=== PATIENT | female | born 2000 | race Caucasian/White ===

== ENCOUNTER 2024-07-11 07:09 | Emergency (ER) | payer OTHER, SELFPAY ==
--- OUTSIDE RECORDS SUMMARY | 2024-07-11 07:12 | XMS_ITS | Clinical Summary ---
Author Organization [facility] Address [address] [place] [id number] Care Team Providers Care Vice President Investor Relations Name Role Phone Linda Man SLIP BOX CHANGER Primary Care Provider Allergies Active Allergy Reactions Criticality Noted Date Comments Prednisone Itching 05/08/2022 Amoxicillin Vomiting 01/04/2009 Medications MULTIVITAMIN,ST RESS FORMULA (STRESS TAB NF ORAL)Indication s:anxiety Take by mouth. Indications: anxiety Active ETHINYL ESTRADIOL/DROSP IRENONE (ISHMAEL, 28, ORAL) Take by mouth. Active escitalopram oxalate (LEXAPRO) 10 mg tablet Take 10 mg by mouth once daily. Active cholecalciferol (VITAMIN D3) 1,000 unit tablet Take 1,000 Units by mouth. Active ferrous sulfate, 65 mg elemental, 324 mg (65 mg iron) Delayed-Release tablet Take by mouth. Active naproxen (ANAPROX DS) 550 mg tablet Take 1 tablet by mouth. 07/29/2015 Active oxyCODONE (ROXICODONE) 5 mg immediate release tabletIndicatio ns:Cellulitis of right lower extremity,Absce ss Take 1 Tablet (5 mg) by mouth every 6 hours if needed for Pain. 6 Tablet 08/05/2023 Active Immunizations Immunization Administration Dates Next Due AMB Influenza, IIV3 (Age >=3 years)(Flu Clinic Only) 12/23/2007 DTaP 09/14/2003, 0,1998,1998,1998 HIB PRP-OMP (PedvaxHIB) 08/30/1999,11/29,1998,1998 Hepatitis B (Peds) 1998,1998, 999 Human Papilloma Virus Vaccine 10/06/2010 Inactivated Polio Vaccine 09/14/2003,,1998,1998 MMR 09/14/2003,08/30/1999 Tdap 10/06/2010 Varicella Vaccine 10/06/2010,06/06/1999 Family History Medical History Relation Name Comments Asthma Maternal Grandmother Cancer Maternal Grandmother RENAL C ELL Other Maternal Grandmother TB Allergies Mother Asthma Mother EXERCISE INDUCE D Heart Disease Paternal Grandfather CABG Cancer Paternal Grandmother UTERINE Relation Name Status Comments Father Alive Maternal Grandfather Alive Maternal Grandmother Alive Mother Alive Paternal Grandfather Alive Paternal Grandmother Social History Tobacco Use Types Packs/Day Years Used Date Smoking Tobacco: Never Smokeless Tobacco: Never Alcohol Use Standard Drinks/Week Comments No 0 (1 standard drink = 0.6 oz pur e alcohol) Interpersonal Safety Answer Date Record ed Are you being hit, kicked, p ushed or yelled at (see row info)? 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 Gender Identity Not on file Sexual Orientation Not on file Occupation Industry Job Start Date Job End Date student Not on file Not on file Not on file Obstetrics History Last Filed Vital Signs Vital Sign Reading Time Taken Comments Blood Pressure 114/75 08/05/2023 2:16 PM CDT Pulse 82 08/05/2023 2:16 PM CDT Temperature 36.8 C (98.3 F) 08/05/2023 2:16 PM CDT Respiratory Rate 16 08/05/2023 2:16 PM CDT Oxygen Saturation 96% 08/05/2023 2:16 PM CDT Inhaled Oxygen Concentration - - Weight 101.2 kg (223 lb) 08/05/2023 12:45 PM CDT Height 160 cm (5' 3) 08/05/2023 12:45 PM CDT Body Mass Index 39.5 08/05/2023 12:45 PM CDT Plan of Treatment Health Maintenance Due Date Last Done Comments Depression screening for age 12+ 2010 HPV series for age 9-26 (2 - 2-dose series) 04/08/2011 10/06/2010, 10/06/2010 HIV for age 15-65 2013 BMI (ht and wt on same day) for age 18+ 2016 Hepatitis C screening for ag e 18-79 2016 Pap test for age 21-65 05/30/2019 Tetanus booster 10/06/2020 10/06/2010 COVID-19 vaccine series ( season) 2023 01/01/2021, 06/03/2020, 05/08/2020 Influenza Vaccine (Season Ended) 2024 12/23/2007 Tdap Completed 10/06/2010 Pneumococcal series for age 6-49 Aged Out No longer eligible b ased on patient's age to complete this topic Insurance MELODIE WATT [id number] [facility] [place] [id number] [employer] CHOICE Care Teams Vice President Investor Relations Relationship Specialty Start Date End Date Linda Man NP [address] [place] [address] PCP - General Nurse Practitioner 08/05/23
--- OUTSIDE RECORDS SUMMARY | 2024-07-11 07:12 | XMS_ITS | Clinical Summary ---
Author Organization [facility] Address [address] [place] [address] Care Team Providers Care Diffuser Operator Name Role Phone Mikki Washburn MD Primary Care Provi michelle Allergies Active Allergy Reactions Criticality Noted Date Comments Amoxicillin 02/22/2019 Medications cholecalciferol (VITAMIN D-[address]) 25 MCG (1000 UT) TABS Take 1,000 Units by mouth Active escitalopram (LEXAPRO) 10 MG tablet 10/03/2018 Active Ferrous Sulfate 324 (65 Fe) MG TBEC Take 130 mg of iron by mouth Active levothyroxine (SYNTHROID/LEVOT HROID) 50 MCG tablet 01/10/2019 Active magnesium 250 MG tablet Take 250 mg by mouth Active naproxen sodium (ANAPROX) 550 MG tablet Take 1 tablet by mouth 07/29/2015 Active metroNIDAZOLE (FLAGYL) 500 MG tabletIndication s:BV (bacterial vaginosis) Take 1 tablet (500 mg) by mouth 2 times daily 14 tablet 02/22/2019 Active Social History Tobacco Use Types Packs/Day Years Used Date Smoking Tobacco: Never Assessed Comments Unknown Sex and Gender Information Value Date Recorded Sex Assigned at Not on file Legal Sex Female 11:11 AM TEXTILE DYER Gender Identity Not on file Sexual Orientation Not on file Last Filed Vital Signs Vital Sign Reading Time Taken Comments Blood Pressure 128/84 02/22/2019 11:31 AM TEXTILE DYER Pulse 85 02/22/2019 11:31 AM TEXTILE DYER Temperature 37.3 C (99.2 F) 02/22/2019 11:31 AM TEXTILE DYER Respiratory Rate - - Oxygen Saturation 97% 02/22/2019 11:31 AM TEXTILE DYER Inhaled Oxygen Concentration - - Weight 101.6 kg (224 lb) 02/22/2019 11:31 AM TEXTILE DYER Height 160 cm (5' 3) 02/22/2019 11:31 AM TEXTILE DYER Body Mass Index 39.68 02/22/2019 11:31 AM TEXTILE DYER Plan of Treatment [place] [id number] [facility] OUT OF STATE Care Teams Diffuser Operator Relationship Specialty Start Date End Date Mikki Washburn MD PCP - General Family Practice 02/22/19
[2024-07-11 07:14] VITALS: BP 120/86; PULSE 98; RESP 18; TEMP 36.4; O2SAT 98; BMI 37.7
--- NOTE | 2024-07-11 07:40 | ED_ITS ---
HPI - General Adult General Chief complaint: Nausea/Vomiting <Rudolph Mario MD - Last Filed: 07/12/24 08:17> Stated complaint: vomiting and diarriah <Rudolph Mario MD - Last Filed: 07/12/24 08:17> Time Seen by Provider: 07/11/24 07:36 <Rudolph Mario MD - Last Filed: 07/12/24 08:17> History of Present Illness HPI narrative: Patient is a 24-year-old woman who comes in today with a 12 hour history of nausea vomiting diarrhea. She has had no fevers no chills no night sweats. She has had no blood in her stool. She has had no overt abdominal pain. She states that she is not . She is on stable medications with no recent changes. She has had no recent travel or sick contacts. The vomiting is alone limited now she is still very nauseated. She has not had anything to eat since yesterday. <Rudolph Mario MD - Last Filed: 07/12/24 08:17> Related Data Home medications: Home Medications ?Medication ?Instructions ?Recorded ?Confirmed desogestrel 0.15 mg-ethinyl 1 tab PO DAILY 07/11/24 07/11/24 estradiol 0.03 mg tablet (Enskyce) dextroamphetamine-amphetamine 15 1 tab PO BID 07/11/24 07/11/24 mg tablet dicyclomine 10 mg capsule 10 mg PO BID 07/11/24 07/11/24 escitalopram oxalate 20 mg tablet 20 mg PO DAILY 07/11/24 07/11/24 levothyroxine 50 mcg tablet 50 mcg PO QAM 07/11/24 07/11/24 loperamide 2 mg capsule 2 mg PO BID 07/11/24 07/11/24 topiramate 100 mg tablet 100 mg PO DAILY 07/11/24 07/11/24 Previous Rx's ?Medication ?Instructions ?Recorded ondansetron HCl 4 mg tablet 4 mg PO Q8H PRN nausea and 07/11/24 vomiting #10 tabs <Rudolph Mario MD - Last Filed: 07/12/24 08:17> Allergies/adverse reactions: Allergies Allergy/AdvReac Type Severity Reaction Status Date / Time prednisone Allergy Mild itchy Verified 07/11/24 07:20 under skin <Rudolph Mario MD - Last Filed: 07/12/24 08:17> Review of Systems Status of ROS: Reports: 10 or more systems reviewed and unremarkable except as noted in History and below <Rudolph Mario MD - Last Filed: 07/12/24 08:17> [facility] Social History: Social History Smoking Status: Never smoker How often do you have a drink containing alcohol: never How often do you have six or more drinks on one occasion: Never AUDIT-C Alcohol total score: 0 Non-prescribed substance use: denies use <Rudolph Mario MD - Last Filed: 07/12/24 08:17> Exam Narrative: Exam Narrative: EXAM GENERAL: Patient appears comfortable and well. EYES: No scleral icterus. LYMPH: No supraclavicular or cervical lymphadenopathy. SKIN: Visible skin seen during exam normal or with benign process only. EXT: No dependent lower extremity pedal edema. HEART: Regular rate and rhythm with no murmurs, rubs, or gallops. LUNGS: Clear to auscultation bilaterally with no crackles or wheezes. ABD: Soft, non tender, non distended. PSYCH: Good eye contact, speech is not pressured. <Rudolph Mario MD - Last Filed: 07/12/24 08:17> Const: Vital Signs, click to edit/add: Vital Signs - 24 hr 07/11/24 10:05 Pulse Rate [Pulse Oximeter] 97 Respiratory Rate 16 Blood Pressure [Ri ght Upper Arm] 122/82 Pulse Oximetry 97 Oxygen Delivery Me thod Room Air <Rudolph Mario MD - Last Filed: 07/12/24 08:17> Vital Signs, click to edit/add: Vital Signs - 24 hr 07/11/24 10:05 Pulse Rate [Pulse Oximeter] 97 Respiratory Rate 16 Blood Pressure [Ri ght Upper Arm] 122/82 Pulse Oximetry 97 Oxygen Delivery Me thod Room Air <Jim Cuellar MD - Last Filed: 07/11/24 10:04> Course Course ED Course: Patient seen and examined. Normal saline Zofran given. CBC comprehensive metabolic panel lipase pending. <Rudolph Mario MD - Last Filed: 07/12/24 08:17> Reevaluation(s) Reevaluation #1: patient signed out to Dr. Cuellar at shift change -8:00 a.m.. Labs came back with a mild leukocytosis. Dr. Cuellar added on a serum qualitative test and it was negative. Patient was feeling much better after a fluids and Zofran. Recheck shows that her exam is reassuring. Discussed the presenting symptoms, current situation, andplan of care with the patient and her father. She is comfortable managing her symptoms at home. Right now are presumption this is probably a viral GI illness. MDM: The patient's symptoms and exam could be consistent with a viral GI infection. There is no high fever, severe pain, bilious or bloody emesis, blood or mucous in the stool, severe abdominal pain, or other concerning signs for a bacterial infection. No recent travel or high risk exposure for baceraial p athogen. No recent antibiotics or risk factors for C. diff. I don't see any evidence for appendicitis, bowel obstruction, abscess, bowel perforation, or other surgical emergency. Labs show no concerning electrolyte disturbance or renal failure. After meds given the patient is feeling better. At this point, the patient is non-septic appearing and well hydrated.I think the patient can be managed as an outpatient. We have discussed oral rehydration strategies. They understand and can perform the needed interventions at home. I have provided a prescription for antiemetics to facilitate oral hydration ( Zofran oral dissolving tablets). We have discussed the signs and symptoms of worsening dehydration. They understand the need for immediate reevaluation if any of these symptoms occur. They are also directed to obtain close outpatient follow up within 2-3 days. <Jim Cuellar MD - Last Filed: 07/11/24 10:04> Vital Signs Vital signs: Initial Vital Signs Temperature 97.6 F 07/11/24 07:14 Temperature Source Temporal Artery Scan 07/11/24 07:14 Pulse Rate 98 07/11/24 07:14 Respiratory Rate 18 07/11/24 07:14 Blood Pressure 120/86 07/11/24 07:14 Blood Pressure Mean 97 07/11/24 07:14 Blood Pressure Position Sitting 07/11/24 07:14 Pulse Oximetry 98 07/11/24 07:14 Oxygen Delivery Method Room Air 07/11/24 07:14 Vital Signs Temperature 97.6 F 07/11/24 07:14 Pulse Rate 98 07/11/24 07:14 Respiratory Rate 18 07/11/24 07:14 Blood Pressure 120/86 07/11/24 07:14 Pulse Oximetry 98 07/11/24 07:14 Oxygen Delivery Method Room Air 07/11/24 07:14 Temperature 97.6 F 07/11/24 07:14 Pulse Rate 97 07/11/24 10:05 Respiratory Rate 16 07/11/24 10:05 Blood Pressure 122/82 07/11/24 10:05 Pulse Oximetry 97 07/11/24 10:05 Oxygen Delivery Method Room Air 07/11/24 10:05 <Rudolph Mario MD - Last Filed: 07/12/24 08:17> Initial Vital Signs Temperature 97.6 F 07/11/24 07:14 Temperature Source Temporal Artery Scan 07/11/24 07:14 Pulse Rate 98 07/11/24 07:14 Respiratory Rate 18 07/11/24 07:14 Blood Pressure 120/86 07/11/24 07:14 Blood Pressure Mean 97 07/11/24 07:14 Blood Pressure Position Sitting 07/11/24 07:14 Pulse Oximetry 98 07/11/24 07:14 Oxygen Delivery Method Room Air 07/11/24 07:14 Vital Signs Temperature 97.6 F 07/11/24 07:14 Pulse Rate 98 07/11/24 07:14 Respiratory Rate 18 07/11/24 07:14 Blood Pressure 120/86 07/11/24 07:14 Pulse Oximetry 98 07/11/24 07:14 Oxygen Delivery Method Room Air 07/11/24 07:14 Temperature 97.6 F 07/11/24 07:14 Pulse Rate 97 07/11/24 10:05 Respiratory Rate 16 07/11/24 10:05 Blood Pressure 122/82 07/11/24 10:05 Pulse Oximetry 97 07/11/24 10:05 Oxygen Delivery Method Room Air 07/11/24 10:05 <Jim Cuellar MD - Last Filed: 07/11/24 10:04> Medications Administered Medications: Discontinued Medications Generic Name Dose Route Start Last Admin Trade Name Freq PRN Reason Stop Dose Admin Sodium Chloride 1,000 mls @ 1,000 mls/hr 07/11/24 07:43 07/11/24 08:28 0.9 % Sodium Chloride 1000 Ml IV 07/11/24 08:42 Infused .Q1H JODI Infusion Ondansetron HCl 4 mg 07/11/24 07:52 07/11/24 07:55 Ondansetron 2 Mg/Ml Inj IVP 4 mg ONCE PRN Administration <Rudolph Mario MD - Last Filed: 07/12/24 08:17> Discontinued Medications Generic Name Dose Route Start Last Admin Trade Name Freq PRN Reason Stop Dose Admin Sodium Chloride 1,000 mls @ 1,000 mls/hr 07/11/24 07:43 07/11/24 08:28 0.9 % Sodium Chloride 1000 Ml IV 07/11/24 08:42 Infused .Q1H JODI Infusion Ondansetron HCl 4 mg 07/11/24 07:52 07/11/24 07:55 Ondansetron 2 Mg/Ml Inj IVP 4 mg ONCE PRN Administration <Jim Cuellar MD - Last Filed: 07/11/24 10:04> Medical Decision Making Lab Data Labs: Lab Results 07/11/24 Range/Units 07:45 WBC 14.93 H (4.50-11.00) K/uL RBC 5.08 (4.00-5.20) m/uL Hgb 15.6 (12.0-16.0) gm/dL Hct 46.1 (33.0-51.0) % MCV 91 (80-100) fL MCH 31 (26-34) pg MCHC 34 (32-36) gm/dL RDW Coeff of Jessica 11.9 (11.5-15.5) % Plt Count 358 (140-440) K/uL Neut % (Auto) 85.6 H (42.0-72.0) % Lymph % (Auto) 8.0 L (20-44) % [place] % (Auto) 5.0 (0.0-11.0) % Eos % (Auto) 1.1 (0.0-7.0) % Baso % (Auto) 0.1 (0.0-3.0) % Neut # (Auto) 12.80 H (1.7-7.0) K/uL Lymph # (Auto) 1.20 (0.90-2.90) K/uL [place] # (Auto) 0.70 (0.00-0.90) K/UL Eos # (Auto) 0.20 (0.00-0.50) K/uL Baso # (Auto) 0.00 (0.00-0.30) K/uL Abs Immat Gran (auto) 0.00 (0.00-0.30) K/uL Imm/Tot Granulo (auto) 0.2 % Sodium 139 (135-149) mmol/L Potassium 3.5 L (3.6-5.1) mmol/L Chloride 113 (96-114) mmol/L Carbon Dioxide 12 L (20-32) mmol/L Anion Gap 14 (7-15) mEq/L BUN 12 (5-24) mg/dL Creatinine 0.7 (0.5-1.5) mg/dL Estimated Creat Clear 100.75 Estimated GFR 122 ml/min Glucose 104 (60-115) mg/dL Calcium 9.3 (8.4-10.6) mg/dL Total Bilirubin 0.6 (0.1-1.5) mg/dL AST 25 (12-35) U/L ALT 18 (4-35) U/L Alkaline Phosphatase 108 (40-150) U/L Total Protein 8.1 (6.0-8.3) g/dL Albumin 4.4 (3.3-5.0) g/dL Lipase 32 (23-300) U/L HCG, Qual Negative (Negative) <Rudolph Mario MD - Last Filed: 07/12/24 08:17> Lab Results 07/11/24 Range/Units 07:45 WBC 14.93 H (4.50-11.00) K/uL RBC 5.08 (4.00-5.20) m/uL Hgb 15.6 (12.0-16.0) gm/dL Hct 46.1 (33.0-51.0) % MCV 91 (80-100) fL MCH 31 (26-34) pg MCHC 34 (32-36) gm/dL RDW Coeff of Jessica 11.9 (11.5-15.5) % Plt Count 358 (140-440) K/uL Neut % (Auto) 85.6 H (42.0-72.0) % Lymph % (Auto) 8.0 L (20-44) % [place] % (Auto) 5.0 (0.0-11.0) % Eos % (Auto) 1.1 (0.0-7.0) % Baso % (Auto) 0.1 (0.0-3.0) % Neut # (Auto) 12.80 H (1.7-7.0) K/uL Lymph # (Auto) 1.20 (0.90-2.90) K/uL [place] # (Auto) 0.70 (0.00-0.90) K/UL Eos # (Auto) 0.20 (0.00-0.50) K/uL Baso # (Auto) 0.00 (0.00-0.30) K/uL Abs Immat Gran (auto) 0.00 (0.00-0.30) K/uL Imm/Tot Granulo (auto) 0.2 % Sodium 139 (135-149) mmol/L Potassium 3.5 L (3.6-5.1) mmol/L Chloride 113 (96-114) mmol/L Carbon Dioxide 12 L (20-32) mmol/L Anion Gap 14 (7-15) mEq/L BUN 12 (5-24) mg/dL Creatinine 0.7 (0.5-1.5) mg/dL Estimated Creat Clear 100.75 Estimated GFR 122 ml/min Glucose 104 (60-115) mg/dL Calcium 9.3 (8.4-10.6) mg/dL Total Bilirubin 0.6 (0.1-1.5) mg/dL AST 25 (12-35) U/L ALT 18 (4-35) U/L Alkaline Phosphatase 108 (40-150) U/L Total Protein 8.1 (6.0-8.3) g/dL Albumin 4.4 (3.3-5.0) g/dL Lipase 32 (23-300) U/L HCG, Qual Negative (Negative) <Jim Cuellar MD - Last Filed: 07/11/24 10:04> Discharge Plan Discharge Clinical Impression: Nausea, vomiting, and diarrhea, Leukocytosis <Rudolph Mario MD - Last Filed: 07/12/24 08:17> Patient Disposition: Home, Self-Care <Rudolph Mario MD - Last Filed: 07/12/24 08:17> Condition: Stable <Rudolph Mario MD - Last Filed: 07/12/24 08:17> Instructions: Acute Nausea and Vomiting (DC), Acute Diarrhea (ED) <Rduolph Mario MD - Last Filed: 07/12/24 08:17> Additional Instructions: as we discussed, please come back to the ER right away if you have worsening symptoms especially uncontrolled vomiting, dehydration, bloody or mucousy diarrhea, high fever, or worsening abdominal pain. If her symptoms are not dramatically improved within 24-48 hours, please return to the ER or see your doctor for recheck. For today rest and stay home from work. Try to drink fluids to stay hydrated. Use Zofran if needed to help treat nausea. You can also get [id number] anti diarrhea medications such as Imodium and use that as needed to treat diarrhea. <Rudolph Mario MD - Last Filed: 07/12/24 08:17> Prescriptions: New ondansetron HCl 4 mg tablet 4 mg PO Q8H PRN (Reason: nausea and vomiting) Qty: 10 0RF No Action desogestrel-ethinyl estradiol [Enskyce] 0.15-0.03 mg tablet 1 tab PO DAILY loperamide 2 mg capsule 2 mg PO BID levothyroxine 50 mcg tablet 50 mcg PO QAM dextroamphetamine-amphetamine 15 mg tablet 1 tab PO BID topiramate 100 mg tablet 100 mg PO DAILY dicyclomine 10 mg capsule 10 mg PO BID escitalopram oxalate 20 mg tablet 20 mg PO DAILY <Rudolph Mario MD - Last Filed: 07/12/24 08:17> Follow Up/Referrals: Provider,Not a Local [Primary Care Provider] - <Rudolph Mario MD - Last Filed: 07/12/24 08:17> Stand Alone Forms: [employer] Info Instructions <Rudolph Mario MD - Last Filed: 07/12/24 08:17>
[2024-07-11] MEDS: ONDANSETRON 2 MG/ML inj 4 MG IVP (07:55)
[2024-07-11] MEDS: 0.9 % SODIUM CHLORIDE 1000 ml 1,000 ML IV (07:56)
[2024-07-11 08:00] LABS: Basophils Percent Auto 0.1 % (0.0-3.0); Eosinophils Percent Auto 1.1 % (0.0-7.0); Hematocrit* 46.1 % (33.0-51.0); Hemoglobin* 15.6 gm/dL (12.0-16.0); Immature Granulocytes Pct Auto 0.2 %; Mean Corpuscular HGB Conc 34 gm/dL (32-36); Mean Corpuscular Hemoglobin 31 pg (26-34); Mean Corpuscular Volume 91 fL (80-100); Neutrophils Percent Auto 85.6 % (42.0-72.0); Platelet Count* 358 K/uL (140-440); RDW Coefficient of Variation % 11.9 % (11.5-15.5); Red Blood Count* 5.08 m/uL (4.00-5.20); White Blood Count* 14.93 K/uL (4.50-11.00)
[2024-07-11 08:02] LABS: Slide Review Reflex No
[2024-07-11 08:12] LABS: Albumin* 4.4 g/dL (3.3-5.0); Chloride* 113 mmol/L (96-114); Potassium* 3.5 mmol/L (3.6-5.1); Sodium* 139 mmol/L (135-149)
[2024-07-11 08:15] LABS: Alanine Aminotransferase* 18 U/L (4-35); Alkaline Phosphatase* 108 U/L (40-150); Anion Gap 14 mEq/L (7-15); Aspartate Amino Transferase* 25 U/L (12-35); Bilirubin Total* 0.6 mg/dL (0.1-1.5); Blood Urea Nitrogen* 12 mg/dL (5-24); Calcium* 9.3 mg/dL (8.4-10.6); Carbon Dioxide* 12 mmol/L (20-32); Creatinine* 0.7 mg/dL (0.5-1.5); Est. Creatinine Clearance* 100.75; Estimated Glomerular Filt Rate 122 ml/min; Glucose* 104 mg/dL (60-115); Lipase* 32 U/L (23-300); Total Protein* 8.1 g/dL (6.0-8.3)
--- OUTSIDE RECORDS SUMMARY | 2024-07-11 08:25 | XMS_ITS | Clinical Summary ---
Author Organization [facility] Address [address] [place] [address] Care Team Providers Care Water Reuse Program Manager Name Role Phone Mikki Washburn MD Primary [...] on file Legal Sex Female 11:11 AM CRIME INVESTIGATOR SPECIAL AGENT Gender Identity Not on file Sexual Orientation Not on file Last Filed Vital Signs Vital Sign Reading Time Taken Comments Blood Pressure 128/84 02/22/2019 11:31 AM CRIME INVESTIGATOR SPECIAL AGENT Pulse 85 02/22/2019 11:31 AM CRIME INVESTIGATOR SPECIAL AGENT Temperature 37.3 C (99.2 F) 02/22/2019 11:31 AM CRIME INVESTIGATOR SPECIAL AGENT Respiratory Rate - - Oxygen Saturation 97% 02/22/2019 11:31 AM CRIME INVESTIGATOR SPECIAL AGENT Inhaled Oxygen Concentration - - Weight 101.6 kg (224 lb) 02/22/2019 11:31 AM CRIME INVESTIGATOR SPECIAL AGENT Height 160 cm (5' 3) 02/22/2019 11:31 AM CRIME INVESTIGATOR SPECIAL AGENT Body Mass Index 39.68 02/22/2019 11:31 AM CRIME INVESTIGATOR SPECIAL AGENT Plan of Treatment [place] [id number] [facility] Care Teams Water Reuse Program Manager Relationship Specialty Start Date End Date Mikki Washburn MD PCP - General Family Practice 02/22/19
--- OUTSIDE RECORDS SUMMARY | 2024-07-11 08:25 | XMS_ITS | Clinical Summary ---
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
[2024-07-11 09:41] LABS: HCG Qualitative Serum* Negative (Negative)
[2024-07-11 10:05] VITALS: BP 122/82; PULSE 97; RESP 16; O2SAT 97
== END 2024-07-11 10:09 | disposition home or self-care (01) ==
PROVIDERS: Internal Medicine; Emergency Provider Emergency Medicine
DX: R11.2 Nausea with vomiting, unspecified (principal); R19.7 Diarrhea, unspecified; D72.829 Elevated white blood cell count, unspecified
CPT/HCPCS: 36415; 80053; 83690; 84703; 85025; 96374; 99283; J2405; J7030

== ENCOUNTER 2024-10-10 15:49 | Outpatient (CLI) | payer OTHER, SELFPAY | END 2024-10-10 15:50 | disposition home or self-care (01) | PROVIDERS: Visit Provider Family Medicine | DX: R19.7 Diarrhea, unspecified (principal); E03.9 Hypothyroidism, unspecified; D64.9 Anemia, unspecified; D50.9 Iron deficiency anemia, unspecified; G43.009 Migraine without aura, not intractable, without status migrainosus | CPT/HCPCS: 80053; 80061; 82607; 82728; 83540; 83550; 84443 ==

== ENCOUNTER 2024-12-26 08:31 | Emergency (ER) | payer BC, SELFPAY ==
--- OUTSIDE RECORDS SUMMARY | 2024-12-26 08:34 | XMS_ITS | Clinical Summary ---
Author Organization [facility] Address [address] [place] [address] Care Team Providers Care Steamer Blocker Name Role Phone Mikki Washburn MD Primary [...] on file Legal Sex Female 11:11 AM LANDSCAPING AND GROUNDSKEEPING LABORER Gender Identity Not on file Sexual Orientation Not on file Last Filed Vital Signs Vital Sign Reading Time Taken Comments Blood Pressure 128/84 02/22/2019 11:31 AM LANDSCAPING AND GROUNDSKEEPING LABORER Pulse 85 02/22/2019 11:31 AM LANDSCAPING AND GROUNDSKEEPING LABORER Temperature 37.3 C (99.2 F) 02/22/2019 11:31 AM LANDSCAPING AND GROUNDSKEEPING LABORER Respiratory Rate - - Oxygen Saturation 97% 02/22/2019 11:31 AM LANDSCAPING AND GROUNDSKEEPING LABORER Inhaled Oxygen Concentration - - Weight 101.6 kg (224 lb) 02/22/2019 11:31 AM LANDSCAPING AND GROUNDSKEEPING LABORER Height 160 cm (5' 3) 02/22/2019 11:31 AM LANDSCAPING AND GROUNDSKEEPING LABORER Body Mass Index 39.68 02/22/2019 11:31 AM LANDSCAPING AND GROUNDSKEEPING LABORER Plan of Treatment [place] [id number] ON LICENSE OF [facility] [employer] OUT [facility] STATE Care Teams Steamer Blocker Relationship Specialty Start Date End Date Mikki Washburn MD PCP - General Family Practice 02/22/19
--- OUTSIDE RECORDS SUMMARY | 2024-12-26 08:35 | XMS_ITS | Clinical Summary ---
Author Organization [employer] [facility] Address [address] [place] [address] Care Team Providers Care Graduate Rn Name Role Phone Linda Man PACKING MACHINE INSPECTOR Primary Care Provider [phone] Allergies Active Allergy Reactions Criticality Noted Date [...] on file Legal Sex Female 5:48 AM RAYON CONER Gender Identity Not on file Sexual Orientation [...] age 12+ 2010 HPV series for age 9-45 (2 - 2-dose series) 04/08/2011 10/06/2010, 10/06/2010 HIV for age 15-65 2013 BMI (ht and wt on same day) for age 18+ 2016 Hepatitis C screening for ag e 18-79 2016 Pap test for age 21-65 05/30/2019 Tetanus booster 10/06/2020 10/06/2010 COVID-19 vaccine series ( season) 2024 01/01/2021, 06/03/2020, 05/08/2020 Influenza Vaccine (#1) 2024 12/23/2007 RSV vaccine for adults or (1 - 1-dose 75+ series) 2073 Hepatitis B series for 19+ Completed 11/29, 1998, 1998 Pneumococcal series for age 6-49 Aged Out No longer eligible b ased on patient's age to complete this topic Insurance [facility] [place] [id number] [employer] Care Teams Graduate Rn Relationship Specialty Start Date End Date Linda Man NP [address] [place] [address] PCP - General Nurse Practitioner 08/05/23
[2024-12-26 08:36] VITALS: BP 127/99; PULSE 99; RESP 20; TEMP 36.2; O2SAT 98; BMI 39.0
--- NOTE | 2024-12-26 08:53 | CRLHL7_ITS ---
For Patients: As a result of the Century Cures Act, medical imaging exams and procedure reports are released immediately into your electronic medical record. You may view this report before your referring provider. If you have questions, please contact your health care provider. INDICATION: Abdominal pain TECHNIQUE: CT abdomen and pelvis acquired with 108 cc Isovue 370 IV contrast. COMPARISON: None. FINDINGS: Lower chest: Unremarkable. Liver: Intermediate density hypodense lesion measuring 0.8 centimeters in segment 4B (2/45). Gallbladder and bile ducts: Unremarkable. No stones or inflammation. No biliary dilatation. Pancreas: Unremarkable. Spleen: Unremarkable. Adrenal glands: Unremarkable. Kidneys: No hydronephrosis or nephrolithiasis. GI tract: No obstruction. No evidence of significant bowel inflammation. Normal appendix. Vasculature: Abdominal aorta is normal in caliber. Mesenteric arteries are patent. Lymph nodes: No lymphadenopathy. Peritoneum/Abdominal Wall: Tiny fat containing umbilical hernia. Pelvis: Fatty lesion in the left adnexa measuring 1.5 centimeters (2/123) is difficult to differentiate from the adjacent colon, but is concerning for a dermoid. Bones: Unremarkable for age. IMPRESSION: No acute findings to explain symptoms. Intermediate density hypodense lesion in segment 4B of the liver. In a patient of this age, this favors a benign lesion such as hemangioma or adenoma. Consider further evaluation with nonemergent MR abdomen liver protocol. Small left ovarian dermoid. Please note that all CT scans at this facility use dose modulation, iterative reconstruction, and/or weight-based dosing when appropriate to reduce radiation dose to as low as reasonably achievable. Dictated by Elsi Lamb MD @ 12/26/2024 9:45:14 AM (Electronically Signed)
--- NOTE | 2024-12-26 08:59 | ED.ABDPAIN ---
HPI - Abdominal Pain General Chief Complaint: Abdominal Pain Stated Complaint: Abdominal pain Time Seen by Provider: 12/26/24 08:51 History of Present Illness HPI narrative: Patient is a 24-year-old woman who comes in today with 3 days of periumbilical abdominal pain. She has had no nausea no vomiting no fevers no chills no night sweats. She has had no change in her bowel or bladder. She has had anorexia but no vomiting. She states she has had no similar symptoms previously. She does take control and is not sexually active. She has had no change in her medication. She states that the pain is dull and located periumbilically with no radiation. Related Data Home Medications ?Medication ?Instructions ?Recorded ?Confirmed desogestrel 0.15 mg-ethinyl 1 tab PO DAILY 07/11/24 12/26/24 estradiol 0.03 mg tablet (Enskyce) dextroamphetamine-amphetamine 15 1 tab PO BID 07/11/24 12/26/24 mg tablet escitalopram oxalate 20 mg tablet 20 mg PO DAILY 07/11/24 12/26/24 topiramate 100 mg tablet 100 mg PO DAILY 07/11/24 12/26/24 ferrous sulfate 325 mg (65 mg 650 mg PO QDAY 10/10/24 12/26/24 iron) tablet (FeroSul) loperamide 2 mg capsule 2 mg PO BID 12/26/24 12/26/24 Allergies Allergy/AdvReac Type Severity Reaction Status Date / Time prednisone Allergy Mild itchy Verified 10/10/24 15:16 under skin amoxicillin AdvReac Unknown Gastrointestinal Verified 10/10/24 15:16 Upset Review of Systems Status of ROS Reports: 10 or more systems reviewed and unremarkable except as noted in History and below [facility] Medical History Iron deficiency anemia ?D50.9 - Iron deficiency anemia, unspecified (ICD-10) Migraines ?G43.909 - Migraine, unspecified, not intractable, without status migrainosus (ICD-10) Irritable bowel syndrome with diarrhea (2017) ?K58.0 - Irritable bowel syndrome with diarrhea (ICD-10) Hypothyroidism ?E03.9 - Hypothyroidism, unspecified (ICD-10) GERD (gastroesophageal reflux disease) ?K21.9 - Gastro-esophageal reflux disease without esophagitis (ICD-10) Depression ?F32.A - Depression, unspecified (ICD-10) Exercise induced bronchospasm ?J45.990 - Exercise induced bronchospasm (ICD-10) [place] (generalized anxiety disorder) ?F41.1 - Generalized anxiety disorder (ICD-10) ADHD (attention deficit hyperactivity disorder) ?F90.9 - Attention-deficit hyperactivity disorder, unspecified type (ICD-10) Surgical History No history of previous surgery Family History Mother Diabetes Asthma Father Depression Diabetes Asthma Colon polyps Anxiety Sleep apnea Maternal Grandmother COPD (chronic obstructive pulmonary disease) Diabetes Kidney malignancy Paternal Grandmother Depression Uterine cancer Paternal Grandfather Prostate cancer Myocardial infarction, Onset Age: 70 Social History (Updated 10/10/24 @ 16:13 by Sally Donnelly ~ [facility]) Narrative: 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[place], 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 12 years old, lives in [place] Walk dog daily about 30 minutes anytime fitness weight training couple times a week Never smoker Rare alcohol use No drug use What is your current living situation?: I presently have a place to live Problems where you live: no known problems In the past 12 months, utilities in danger of being shut off: no In past 12 months, lack of transportation kept you from medical appts, meetings, work, or getting things needed for daily living: no In the past 12 mos, have been you worried that your food would run out before you had money to buy more?: never true In the past 12 mos, the food you bought just didn't last and you didn't have money to buy more?: never true Smoking Status: Never smoker How often do you have a drink containing alcohol: never How often do you have six or more drinks on one occasion: Never AUDIT-C Alcohol total score: 0 Non-prescribed substance use: denies use How often does anyone, including family, friends and others, physically hurt you: never How often does anyone, including family, friends and others, insult or talk down to you: sometimes How often does anyone, including family, friends and others, threaten you with harm: never How often does anyone, including family, friends and others, scream or curse at you: never service: No Health Related Social Needs: Other personal risk factors, not elsewhere classified (Z91.89) Exam Narrative: Exam Narrative: EXAM GENERAL: Patient appears comfortable and well. THYROID: no thyroid nodules or thyromegaly. LYMPH: No supraclavicular or cervical lymphadenopathy. SKIN: Visible skin seen during exam normal or with benign process only. EXT: No dependent lower extremity pedal edema. HEART: Regular rate and rhythm with no murmurs, rubs, or gallops. LUNGS: Clear to auscultation bilaterally with no crackles or wheezes. ABD: Soft, non tender, non distended. PSYCH: Good eye contact, speech is not pressured. Const: Vital Signs, click to edit/add: Vital Signs - 24 hr 12/26/24 08:36 12/26/24 11:00 Temperature 97.2 F L 97.0 F L Pulse Rate [Pulse Oximeter] 99 92 Respiratory Rate 20 20 Blood Pressure [Le ft Upper Arm] 127/99 H 117/76 Pulse Oximetry 98 98 Oxygen Delivery Me thod Room Air Room Air Course Course ED Course: Patient seen and examined CBC comprehensive metabolic panel lipase UA CT abdomen pelvis pending. Vital Signs Vital signs: Initial Vital Signs Temperature 97.2 F L 12/26/24 08:36 Temperature Source Temporal Artery Scan 12/26/24 08:36 Pulse Rate 99 12/26/24 08:36 Respiratory Rate 20 12/26/24 08:36 Blood Pressure 127/99 H 12/26/24 08:36 Blood Pressure Mean 108 H 12/26/24 08:36 Blood Pressure Position Supine 12/26/24 08:36 Pulse Oximetry 98 12/26/24 08:36 Oxygen Delivery Method Room Air 12/26/24 08:36 Vital Signs Temperature 97.2 F L 12/26/24 08:36 Pulse Rate 99 12/26/24 08:36 Respiratory Rate 20 12/26/24 08:36 Blood Pressure 127/99 H 12/26/24 08:36 Pulse Oximetry 98 12/26/24 08:36 Oxygen Delivery Method Room Air 12/26/24 08:36 Temperature 97.0 F L 12/26/24 11:00 Pulse Rate 92 12/26/24 11:00 Respiratory Rate 20 12/26/24 11:00 Blood Pressure 117/76 12/26/24 11:00 Pulse Oximetry 98 12/26/24 11:00 Oxygen Delivery Method Room Air 12/26/24 11:00 Medications Administered Medications: Discontinued Medications Generic Name Dose Route Start Last Admin Trade Name Sridhar PRN Reason Stop Dose Admin Ketorolac Tromethamine 30 mg 12/26/24 10:41 12/26/24 10:52 Ketorolac 30 Mg/Ml Inj IVP 12/26/24 10:42 30 mg ONCE ONE Administration MDM - Abdominal Pain MDM Narrative Medical decision making narrative: Patient is a 24-year-old woman who presents with periumbilical pain. Workup shows an elevated lipase with otherwise unremarkable workup. Her ultrasound of her gallbladder is normal. I suspect she may have a dysfunctional gallbladder will get a HIDA scan as an outpatient. I did discuss admission with her and I do think she can go home with pain control. She take Tylenol Motrin and then certainly [place] as needed for breakthrough pain. She will see me back in the office next week and she will text me in the interim with further problems develop. Lab Data Labs: Lab Results 12/26/24 12/26/24 Range/Units 08:53 09:20 WBC 11.12 H (4.50-11.00) K/uL RBC 4.38 (4.00-5.20) m/uL Hgb 13.7 (12.0-16.0) gm/dL Hct 40.1 (33.0-51.0) % MCV 92 (80-100) fL MCH 31 (26-34) pg MCHC 34 (32-36) gm/dL RDW Coeff of Jessica 12.1 (11.5-15.5) % Plt Count 361 (140-440) K/uL Neut % (Auto) 75.4 H (42.0-72.0) % Lymph % (Auto) 16.0 L (20-44) % Chaves % (Auto) 7.2 (0.0-11.0) % Eos % (Auto) 0.7 (0.0-7.0) % Baso % (Auto) 0.4 (0.0-3.0) % Neut # (Auto) 8.40 H (1.7-7.0) K/uL Lymph # (Auto) 1.80 (0.90-2.90) K/uL Chaves # (Auto) 0.80 (0.00-0.90) K/UL Eos # (Auto) 0.10 (0.00-0.50) K/uL Baso # (Auto) 0.00 (0.00-0.30) K/uL Abs Immat Gran (auto) 0.00 (0.00-0.30) K/uL Imm/Tot Granulo (auto) 0.3 % Sodium 135 (135-149) mmol/L Potassium 3.7 (3.6-5.1) mmol/L Chloride 111 (96-114) mmol/L Carbon Dioxide 17 L (20-32) mmol/L Anion Gap 7 (7-15) mEq/L BUN 7 (5-24) mg/dL Creatinine 0.6 (0.5-1.5) mg/dL Estimated Creat Clear 117.54 Estimated GFR 127 ml/min Glucose 95 (60-115) mg/dL Calcium 8.8 (8.4-10.6) mg/dL Total Bilirubin 0.3 (0.1-1.5) mg/dL AST 19 (12-35) U/L ALT 16 (4-35) U/L Alkaline Phosphatase 108 (40-150) U/L Total Protein 7.1 (6.0-8.3) g/dL Albumin 3.7 (3.3-5.0) g/dL Lipase 882 H (23-300) U/L Urine Color Yellow (Yellow) Urine Appearance Clear (Clear) Urine pH 7.5 (5.0-8.5) Ur Specific [place] 1.015 (1.000-1.030) Urine Protein Negative (Negative) Urine Glucose (UA) Negative (Negative) Urine Ketones Negative (Negative) Urine Blood 1+ A (Negative) Urine Nitrite Negative (Negative) Urine Bilirubin Negative (Negative) Urine Urobilinogen 0.2 (0.2-1.0) Ur Leukocyte Esterase Negative (Negative) Urine RBC 0-2 (0-2) Urine WBC 2-5 (0-5) Ur Squamous Epith Cells Few (None-Few) Amorphous Sediment Moderate A (None) Urine Bacteria Moderate A (None) Discharge Plan Discharge Clinical Impression: Pancreatitis Patient Disposition: Home, Self-Care Condition: Stable Instructions: Pancreatitis (ED) Additional Instructions: Follow-up with Dr. Mario 4:00 p.m. this coming Sunday. Text Dr. Mario at [phone] problems in the interim. Tylenol Motrin [place] Limited diet to soft Return if symptoms worsen Activity Level: No Restrictions Discharge Diet: Other Prescriptions: No Action ferrous sulfate [FeroSul] 325 mg (65 mg iron) tablet 650 mg PO QDAY desogestrel-ethinyl estradiol [Enskyce] 0.15-0.03 mg tablet 1 tab PO DAILY dextroamphetamine-amphetamine 15 mg tablet 1 tab PO BID topiramate 100 mg tablet 100 mg PO DAILY escitalopram oxalate 20 mg tablet 20 mg PO DAILY loperamide 2 mg capsule 2 mg PO BID Follow Up/Referrals: Provider,Not a Local [Primary Care Provider, Family Practice] Stand Alone Forms: [employer] Info Instructions
[2024-12-26 09:38] LABS: Hematocrit* 40.1 % (33.0-51.0); Hemoglobin* 13.7 gm/dL (12.0-16.0); Immature Granulocytes Pct Auto 0.3 %; Mean Corpuscular HGB Conc 34 gm/dL (32-36); Mean Corpuscular Hemoglobin 31 pg (26-34); Mean Corpuscular Volume 92 fL (80-100); RDW Coefficient of Variation % 12.1 % (11.5-15.5); Red Blood Count* 4.38 m/uL (4.00-5.20); White Blood Count* 11.12 K/uL (4.50-11.00)
[2024-12-26 09:42] LABS: Immature Granulocytes Abs Auto 0.00 K/uL (0.00-0.30); Lymphocytes Absolute Auto 1.80 K/uL (0.90-2.90); Slide Review Reflex No
[2024-12-26 09:43] LABS: Albumin* 3.7 g/dL (3.3-5.0); Chloride* 111 mmol/L (96-114)
[2024-12-26 09:44] LABS: Potassium* 3.7 mmol/L (3.6-5.1); Sodium* 135 mmol/L (135-149)
[2024-12-26 09:46] LABS: Alanine Aminotransferase* 16 U/L (4-35); Alkaline Phosphatase* 108 U/L (40-150); Anion Gap 7 mEq/L (7-15); Aspartate Amino Transferase* 19 U/L (12-35); Bilirubin Total* 0.3 mg/dL (0.1-1.5); Blood Urea Nitrogen* 7 mg/dL (5-24); Carbon Dioxide* 17 mmol/L (20-32); Creatinine* 0.6 mg/dL (0.5-1.5); Est. Creatinine Clearance* 117.54; Estimated Glomerular Filt Rate 127 ml/min
[2024-12-26 09:47] LABS: Calcium* 8.8 mg/dL (8.4-10.6); Glucose* 95 mg/dL (60-115)
[2024-12-26 09:48] LABS: Total Protein* 7.1 g/dL (6.0-8.3)
[2024-12-26 10:00] LABS: Appearance Urine Clear (Clear)
--- NOTE | 2024-12-26 10:35 | CRLHL7_ITS ---
For Patients: As a result of the Century Cures Act, medical imaging exams and procedure reports are released immediately into your electronic medical record. You may view this report before your referring provider. If you have questions, please contact your health care provider. INDICATION: Pancreatitis COMPARISON: CT 12/26/2024 TECHNIQUE: Real time boggs scale imaging and color Doppler analysis was performed of the gallbladder. FINDINGS: Incidental hyperechoic focus within the right hepatic lobe measures 15 x 10 x 14 millimeters. The gallbladder is of normal size and there is no evidence of intraluminal stones or sludge. The gallbladder wall measures 1 mm in thickness. The common bile duct is of normal size and measures 5.4 mm in diameter at the level of the deion hepatis. IMPRESSION: Normal gallbladder ultrasound. Benign incidental 1.5 cm intrahepatic hemangioma. Dictated by Dewey Katz MD @ 12/26/2024 11:10:48 AM (Electronically Signed)
[2024-12-26 11:00] VITALS: BP 117/76; PULSE 92; RESP 20; TEMP 36.1; O2SAT 98
== END 2024-12-26 12:21 | disposition home or self-care (01) ==
PROVIDERS: Emergency Provider Internal Medicine
DX: K85.90 Acute pancreatitis without necrosis or infection, unspecified (principal)
CPT/HCPCS: 36415; 74177; 76705; 80053; 81001; 81003; 83690; 85025; 87086; 96374; 99283; 99284; J1885; Q9967

== ENCOUNTER 2024-12-31 16:31 | Outpatient (CLI) | payer BC, SELFPAY | END 2024-12-31 16:32 | disposition home or self-care (01) | PROVIDERS: PCP Internal Medicine; Visit Provider Internal Medicine | DX: K85.90 Acute pancreatitis without necrosis or infection, unspecified (principal) | CPT/HCPCS: 80061; 83690 ==